=== PATIENT | male | born 1990 | race Hispanic/Latino ===

== ENCOUNTER 2021-05-14 02:02 | Emergency (ER) | payer SELFPAY ==
--- NOTE | 2021-05-14 03:19 | ER ---
Nurse's Notes [facility] Name: Zack Gomez Jr Age: 30 yrs Sex: Male : 1990 Arrival Date: 05/14/2021 Time: 02:10 Bed 15 Private MD: Diagnosis: Chest pain, unspecified-wall Presentation: 05/14 02:20 Chief complaint: Patient states: right sided rib pain that started about 30 minutes em ago, reports having 2 episodes of vomiting yesterday, denies abdominal pain or nausea or vomiting today. Coronavirus screen: Vaccine status: Patient reports being unvaccinated. Ebola Screen: Patient negative for fever greater than or equal to 101.5 degrees Fahrenheit, and additional compatible Ebola Virus Disease symptoms Patient denies exposure to infectious person. Patient denies travel to an Ebola-affected area in the 21 days before illness onset. No symptoms or risks identified at this time. Initial Sepsis Screen: Does the patient meet any 2 criteria? No. Patient's initial sepsis screen is negative. Does the patient have a suspected source of infection? No. Patient's initial sepsis screen is negative. Risk Assessment: Do you want to hurt yourself or someone else? Patient reports no desire to harm self or others. Onset of symptoms was May 14, 2021. 02:20 Method Of Arrival: Ambulatory em 02:20 Acuity: KAVITHA 3 em Historical: - Allergies: 02:19 No Known Allergies; em - PMHx: 02:19 None; em - PSHx: 02:19 None; em - Immunization history:: Client reports having NOT received the Covid vaccine. - Social history:: Smoking status: Patient reports the use of cigarette tobacco products, denies chronic smoking, but will smoke occasionally. - Family history:: not pertinent. Screenin:50 Abuse screen: Denies threats or abuse. Nutritional screening: No deficits noted. cc4 Tuberculosis screening: No symptoms or risk factors identified. Fall Risk None identified. Assessment: 02:50 General: Appears in no apparent distress. Behavior is calm, cooperative. Pain: cc4 Complains of pain in chest Pain Quality of pain is described as Reports soreness lower right lower lateral ribs x 1 hour; reports vomiting twice yesterday; reports pain level "4" only when right lateral rib area pressed with hand. Pain began 1 hour ago. Is intermittent. Vital Signs: 02:19 BP 140 / 100; Pulse 87; Resp 18; Temp 98.4; Pulse Ox 99% on R/A; Weight 81.65 kg; em Height 5 ft. 7 in. (170.18 cm); 02:50 BP 126 / 96; Pulse 73; Resp 20; Temp 97.8; Pulse Ox 99% on R/A; cc4 04:05 BP 134 / 89; Pulse 85; Resp 20; Temp 97.9; Pulse Ox 98% on R/A; cc4 02:19 Body Mass Index 28.19 (81.65 kg, 170.18 cm) em ED Course: 02:10 Patient arrived in ED. 02:19 Arm band placed on. 02:22 Triage completed. 02:35 Kory Ordoñez MD is Attending Physician. [facility] 02:50 Patient has correct armband on for positive identification. Bed in low position. Call cc4 light in reach. Side rails up X 1. 02:50 No provider procedures requiring assistance completed. cc4 02:58 Silvia Pablo, RN is Primary Nurse. cc4 03:02 Chest Pa And Lat (2 Views) XRAY Sent. cc4 03:21 Chest Pa And Lat (2 Views) XRAY In Process Unspecified. EDWI 04:05 Patient did not have IV access during this emergency room visit. cc4 Administered Medications: 02:59 Drug: Motrin (ibuprofen) 800 mg Route: PO; cc4 04:05 Follow up: Response: No adverse reaction; Pain is decreased cc4 Outcome: 03:09 Condition: stable cc4 03:19 Discharge ordered by . [facility] 04:05 Discharged to home ambulatory. cc4 04:05 Discharge instructions given to patient, Instructed on discharge instructions, follow up and referral plans. medication usage, Demonstrated understanding of instructions, follow-up care, medications, Prescriptions given X 1. 04:19 Patient left the ED. cc4 Signatures: Dispatcher [employer] EDKory Jay MD MD cha Munoz, Edgar, RN RN Zahra Thompson Silvia Pablo, FUNMI RN cc4
--- NOTE | 2021-05-14 03:19 | EDPHYS ---
Physician Documentation [facility] Name: Zack Gomez Jr Age: 30 yrs Sex: Male : 1990 Arrival Date: 05/14/2021 Time: 02:10 Bed 15 Private MD: ED Physician Kory Ordoñez HPI: 05/14 02:43 This 30 yrs old Male presents to ER via Ambulatory with complaints of RIB PAIN.[facility] 02:43 The patient or guardian reports chest pain that is located primarily in the anterior mary chest wall, right. The pain does not radiate. Associated signs and symptoms: The patient has no apparent associated signs or symptoms. The chest pain is described as sore. Duration: The patient or guardian reports multiple episodes, that wax and wane. Modifying factors: The symptoms are alleviated by remaining still, the symptoms are aggravated by movement, palpation of area. Severity of pain: At its worst the pain was mild moderate in the emergency department the pain is unchanged. The patient has not experienced similar symptoms in the past. Historical: - Allergies: 02:19 No Known Allergies; em - PMHx: 02:19 None; em - PSHx: 02:19 None; em - Immunization history:: Client reports having NOT received the Covid vaccine. - Social history:: Smoking status: Patient reports the use of cigarette tobacco products, denies chronic smoking, but will smoke occasionally. - Family history:: not pertinent. ROS: 02:43 Constitutional: Negative for fever, chills, and weight loss, Eyes: Negative for injury, mary pain, redness, and discharge, ENT: Negative for injury, pain, and discharge, Neck: Negative for injury, pain, and swelling, Cardiovascular: Negative for chest pain, palpitations, and edema, Abdomen/GI: Negative for abdominal pain, nausea, vomiting, diarrhea, and constipation, Back: Negative for injury and pain, : Negative for injury, bleeding, discharge, and swelling, MS/Extremity: Negative for injury and deformity, Skin: Negative for injury, rash, and discoloration, Neuro: Negative for headache, weakness, numbness, tingling, and seizure, Psych: Negative for depression, anxiety, suicide ideation, homicidal ideation, and hallucinations, Allergy/Immunology: Negative for hives, rash, and allergies, Endocrine: Negative for neck swelling, polydipsia, polyuria, polyphagia, and marked weight changes. 02:43 Respiratory: Positive for cough, with no reported sputum. Exam: 02:43 Constitutional: This is a well developed, well nourished patient who is awake, alert, mary and in no acute distress. Head/Face: Normocephalic, atraumatic. Eyes: Pupils equal round and reactive to light, extra-ocular motions intact. Lids and lashes normal. Conjunctiva and sclera are non-icteric and not injected. Cornea within normal limits. Periorbital areas with no swelling, redness, or edema. ENT: Nares patent. No nasal discharge, no septal abnormalities noted. Tympanic membranes are normal and external auditory canals are clear. Oropharynx with no redness, swelling, or masses, exudates, or evidence of obstruction, uvula midline. Mucous membranes moist. Neck: Trachea midline, no thyromegaly or masses palpated, and no cervical lymphadenopathy. Supple, full range of motion without nuchal rigidity, or vertebral point tenderness. No Meningismus. Chest/axilla: Normal chest wall appearance and motion. Nontender with no deformity. No lesions are appreciated. Cardiovascular: Regular rate and rhythm with a normal S1 and S2. No gallops, murmurs, or rubs. Normal PMI, no JVD. No pulse deficits. Respiratory: Lungs have equal breath sounds bilaterally, clear to auscultation and percussion. No rales, rhonchi or wheezes noted. No increased work of breathing, no retractions or nasal flaring. Abdomen/GI: Soft, non-tender, with normal bowel sounds. No distension or tympany. No guarding or rebound. No evidence of tenderness throughout. Back: No spinal tenderness. No costovertebral tenderness. Full range of motion. Male : Normal genitalia with no discharge or lesions. Skin: Warm, dry with normal turgor. Normal color with no rashes, no lesions, and no evidence of cellulitis. MS/ Extremity: Pulses equal, no cyanosis. Neurovascular intact. Full, normal range of motion. Neuro: Awake and alert, GCS 15, oriented to person, place, time, and situation. Cranial nerves II-XII grossly intact. Motor strength 5/5 in all extremities. Sensory grossly intact. Cerebellar exam normal. Normal gait. Psych: Awake, alert, with orientation to person, place and time. Behavior, mood, and affect are within normal limits. 02:43 Chest/axilla: Inspection: normal, Palpation: tenderness, that is mild, of the right lateral anterior chest and right lateral posterior chest. Vital Signs: 02:19 BP 140 / 100; Pulse 87; Resp 18; Temp 98.4; Pulse Ox 99% on R/A; Weight 81.65 kg; em Height 5 ft. 7 in. (170.18 cm); 02:50 BP 126 / 96; Pulse 73; Resp 20; Temp 97.8; Pulse Ox 99% on R/A; cc4 04:05 BP 134 / 89; Pulse 85; Resp 20; Temp 97.9; Pulse Ox 98% on R/A; cc4 02:19 Body Mass Index 28.19 (81.65 kg, 170.18 cm) em MDM: 02:35 Patient medically screened. mary 02:46 Differential diagnosis: chest wall pain, Cholelithiasis pleurisy, pneumothorax. HEART mary Score: History: Slightly Suspicious (0), Age: < or = 45 years (0), Risk Factors: No Risk Factors Known (0). The patient's deep vein thrombosis risk score was calculated as follows: Total Score: 0. This patient was found to be at low risk for a deep vein thrombosis by using the Well's assessment criteria. The patient's pulmonary embolism risk score was calculated as follows: Total Score: 0-2 points. This patient was found to be at low risk for a pulmonary embolism by using the Well's assessment criteria. SANGEETA Risk Score: TOTAL SCORE = 0. Data reviewed: vital signs, nurses notes, radiologic studies, plain films. Data interpreted: teletypesetter monitor: rate is 87 beats/min, rhythm is regular, Pulse oximetry: on room air is 99 %. Test interpretation: by ED physician or midlevel provider: plain radiologic studies. Counseling: I had a detailed discussion with the patient and/or guardian regarding: the historical points, exam findings, and any diagnostic results supporting the discharge/admit diagnosis, radiology results, the need for outpatient follow up, for definitive care, a family practitioner. 05/14 02:43 Order name: Chest Pa And Lat (2 Views) XRAY mary Administered Medications: 02:59 Drug: Motrin (ibuprofen) 800 mg Route: PO; cc4 04:05 Follow up: Response: No adverse reaction; Pain is decreased cc4 Disposition Summary: 05/14/21 03:19 Discharge Ordered Location: Home [facility] Problem: new mary Symptoms: have improved mary Condition: Stable mary Diagnosis - Chest pain, unspecified - wall mary Followup: mary - With: Private Physician - When: 2 - 3 days - Reason: Recheck today's complaints, Continuance of care, Re-evaluation by your physician Discharge Instructions: - Discharge Summary Sheet mary - Nonspecific Chest Pain, Adult mary - Chest Wall Pain, [id number] mary - Nonspecific Chest Pain, Adult, [id number] [facility] Forms: - Medication Reconciliation Form [facility] - Thank You Letter [facility] - Antibiotic Education [facility] - Prescription Opioid Use [facility] Prescriptions: - Ibuprofen 600 mg Oral Tablet - take 1 tablet by ORAL route every 6 hours As needed take with food; 30 tablet; [facility] Refills: 0, Product Selection Permitted Signatures: Dispatcher [employer] Kory Partida MD MD cha Munoz, Edgar, FUNMI RN Silvia Khanna RN RN cc4
[2021-05-14] MEDS ORDERED: IBUPROFEN 400 MG TAB ONE (03:26)
[2021-05-14 04:27] VITALS: BP 134/89; TEMP 97.9; O2SAT 98
--- NOTE | 2021-05-14 07:31 | RAD REPORT ---
EXAM DESCRIPTION: RAD - Chest Pa And Lat (2 Views) - 05/14/2021 3:21 am CLINICAL HISTORY: CHEST PAIN COMPARISON: None TECHNIQUE: Frontal and lateral views of the chest were obtained. FINDINGS: The lungs are clear. Heart size is normal and central vasculature is within normal limit s. No pleural effusion or pneumothorax seen. No acute bony finding noted. No aortic abnormality. IMPRESSION: No acute cardiopulmonary process. No acute bone finding is evident. Continued concerns for rib pathology can be addressed with dedicate d rib series.
== END 2021-05-14 04:19 | disposition home or self-care (01) ==
LOC: ER 02:02
DX: R07.9 Chest pain, unspecified (principal)
CPT/HCPCS: 71046; 99283

== ENCOUNTER 2021-07-07 17:55 | Emergency (ER) | payer SELFPAY ==
[2021-07-07 18:35] LABS: Absolute Lymphocytes (CBC) 2.5 K/uL (0.7-4.9); Basophils % 0.6 % (0-1.3); Hematocrit 47.4 % (39.6-49.0); Lymphocytes % 31.8 % (15.3-44.8); MPV 8.2 fL (7.6-11.3); RBC Red Blood Cell Count 5.62 M/uL (4.33-5.43)
--- NOTE | 2021-07-07 18:35 | RAD REPORT ---
EXAM DESCRIPTION: Caroline Single View07/07/2021 6:22 pm CLINICAL HISTORY: Chest pain COMPARISON: May 2021 FINDINGS: The lungs appear clear of acute infiltrate. The heart is normal size IMPRESSION: No acute abnormalities displayed
[2021-07-07 18:44] LABS: Protime INR 1.05
[2021-07-07 18:54] LABS: ALT/SGPT 25 U/L (12-78); AST/SGOT 20 U/L (15-37); Albumin 4.1 g/dL (3.4-5.0); Alkaline Phosphatase 92 U/L (45-117); BUN Blood Urea Nitrogen 9 mg/dL (7-18); Bicarbonate 26 mmol/L (21-32); Bilirubin Direct 0.2 mg/dL (0-0.2); Glucose Level 93 mg/dL (74-106); Magnesium 2.5 mg/dL (1.8-2.4); Potassium 4.1 mmol/L (3.5-5.1); Protein, Total 8.6 g/dL (6.4-8.2); Sodium Level 139 mmol/L (136-145); Troponin (Emerg Dept Use Only) < 0.02 ng/mL (0.0-0.045)
[2021-07-07 19:14] LABS: NT PRO-BNP < 5 pg/mL (<125)
[2021-07-07 19:28] LABS: Urine Blood Trace-lysed (Negative); Urine Glucose Negative (Negative); Urine Protein Negative (Negative)
[2021-07-07] MEDS ORDERED: NA CHLORIDE 0.9% 1,000 ML ONE (19:33)
[2021-07-07 19:54] LABS: Barbiturates NEGATIVE (NEGATIVE); Benzodiazepines NEGATIVE (NEGATIVE); Cocaine POSITIVE (NEGATIVE); METHAMPHETAM NEGATIVE (NEGATIVE); Methadone NEGATIVE (NEGATIVE); Opiates NEGATIVE (NEGATIVE); Phencyclidine NEGATIVE (NEGATIVE); THC Cannibis NEGATIVE (NEGATIVE)
[2021-07-07 20:18] LABS: SARS-COV-2 RT PCR NEGATIVE (NEGATIVE)
--- NOTE | 2021-07-07 20:20 | EDPHYS ---
Physician Documentation [facility] Name: Zack Gomez Jr Age: 30 yrs Sex: Male : 1990 Arrival Date: 07/07/2021 Time: 17:56 Bed 5 Private MD: ED Physician Monico Whyte HPI: 07/07 18:09 This 30 yrs old Male presents to ER via EMS with complaints of Chest pain. pm1 18:09 The patient or guardian reports chest pain that is located primarily in the mid-sternal pm1 area. The pain does not radiate. Associated signs and symptoms: Pertinent positives: Generalized weakness, Pertinent negatives: abdominal pain, cough, nausea, shortness of breath. The chest pain is described as Vague. Duration: The patient or guardian reports a single episode, that is still ongoing. Modifying factors: the symptoms are aggravated by Incarceration. The patient has not experienced similar symptoms in the past. The patient has not recently seen a physician. Historical: - Allergies: 18:00 No Known Allergies; jl7 - Home Meds: 18:00 None [Active]; jl7 - PMHx: 18:00 None; jl7 - PSHx: 18:00 None; jl7 - Immunization history:: Adult Immunizations unknown, Client reports having NOT received the Covid vaccine. - Social history:: Smoking status: Patient reports the use of cigarette tobacco products, denies chronic smoking, but will smoke occasionally. ROS: 18:09 Constitutional: Negative for fever, chills, and weight loss. pm1 18:09 Respiratory: Negative for shortness of breath, cough, wheezing, and pleuritic chest pain, Abdomen/GI: Negative for abdominal pain, nausea, vomiting, diarrhea, and constipation, Back: Negative for injury and pain, MS/Extremity: Negative for injury and deformity, Skin: Negative for injury, rash, and discoloration. 18:09 Cardiovascular: Positive for chest pain, Negative for palpitations. 18:09 Neuro: Positive for Generalized weakness. 18:09 All other systems are negative. pm1 Exam: 18:09 Constitutional: This is a well developed, well nourished patient who is awake, alert, pm1 and in no acute distress. Head/Face: Normocephalic, atraumatic. 18:09 Back: No spinal tenderness. No costovertebral tenderness. Full range of motion. 18:09 Skin: Warm, dry with normal turgor. Normal color with no rashes, no lesions, and no evidence of cellulitis. MS/ Extremity: Pulses equal, no cyanosis. Neurovascular intact. Full, normal range of motion. 18:09 Eyes: Exam is negative for acute changes, Extraocular movements: intact throughout, Conjunctiva: normal, no injection. 18:09 ENT: Exam is negative for acute changes, Mouth: no acute changes, Lips: normal, moist, Oral mucosa: normal, pink and intact, moist. 18:09 Cardiovascular: Exam negative for acute changes, Rate: normal, Rhythm: regular, Pulses: no pulse deficits are appreciated. 18:09 Respiratory: Exam negative for acute changes, respiratory distress, shortness of breath, Breath sounds: are clear throughout. 18:09 Abdomen/GI: Inspection: abdomen appears normal, Palpation: abdomen is soft and non-tender, in all quadrants. 18:09 Neuro: Exam negative for acute changes, Orientation: is normal, Mentation: is normal, Motor: is normal, moves all fours. Vital Signs: 17:57 BP 137 / 91; Pulse 69; Resp 17; Temp 97.8(O); Pulse Ox 100% on R/A; Weight 77.11 kg; jl7 Height 5 ft. 7 in. (170.18 cm); Pain 0/10; 19:38 BP 159 / 103; Pulse 60; Resp 17 S; Pulse Ox 98% on R/A; as6 17:57 Body Mass Index 26.63 (77.11 kg, 170.18 cm) jl7 MDM: 18:07 Patient medically screened. pm1 20:18 Data reviewed: vital signs. Data interpreted: Pulse oximetry: on room air is 98 %. pm1 Interpretation: normal. Counseling: I had a detailed discussion with the patient and/or guardian regarding: the historical points, exam findings, and any diagnostic results supporting the discharge/admit diagnosis, lab results, radiology results, the need for outpatient follow up, to return to the emergency department if symptoms worsen or persist or if there are any questions or concerns that arise at home. 07/07 18:08 Order name: Basic Metabolic Panel pm1 07/07 18:08 Order name: CBC with Diff pm1 07/07 18:08 Order name: LFT's pm1 12/04 18:08 Order name: Magnesium pm1 07/07 18:08 Order name: NT PRO-BNP; Complete Time: 19:18 pm1 07/07 18:08 Order name: PT-INR; Complete Time: 18:46 pm1 07/07 18:08 Order name: Troponin (emerg Dept Use Only); Complete Time: 19:18 pm1 07/07 18:08 Order name: UDS; Complete Time: 20:16 pm1 07/07 18:08 Order name: Flu pm1 07/07 18:08 Order name: COVID-19/FLU A+B (Document "Date of Onset" if Symptomatic); Complete Time: pm1 20:20 12 18:09 Order name: Basic Metabolic Panel; Complete Time: 19:18 EDMS 07/07 18:09 Order name: CBC with Automated Diff; Complete Time: 18:46 EDMS 07/07 18:09 Order name: Liver (Hepatic) Function; Complete Time: 19:18 EDMS 07/07 18:09 Order name: Magnesium; Complete Time: 19:18 EDMS 07/07 18:08 Order name: XRAY Chest (1 view); Complete Time: 18:46 pm1 07/07 18:08 Order name: EKG; Complete Time: 18:10 pm1 07/07 18:08 Order name: Cardiac monitoring; Complete Time: 18:30 pm1 07/07 18:08 Order name: EKG - Nurse/Tech; Complete Time: 18:31 pm1 07/07 18:08 Order name: IV Saline Lock; Complete Time: 18:30 pm1 07/07 18:08 Order name: Labs collected and sent; Complete Time: 18:30 pm1 07/07 18:08 Order name: O2 Per Protocol; Complete Time: 18:30 pm1 07/07 18:08 Order name: O2 Sat Monitoring; Complete Time: 18:30 pm1 07/07 18:08 Order name: Urine Dipstick-Ancillary (obtain specimen); Complete Time: 19:27 pm1 04 19:28 Order name: Urine Dipstick-Ancillary; Complete Time: 19:29 EDMS Administered Medications: 19:35 Drug: NS 0.9% 1000 ml Route: IV; Rate: 1000 ml; Site: right antecubital; as6 20:29 Follow up: Response: No adverse reaction; IV Status: Completed infusion; IV Intake: as6 1000ml Disposition: 07/08 08:00 Co-signature as Attending Physician, Monico Whyte MD I agree with the assessment and rn plan of care. Disposition Summary: 07/07/21 20:18 Discharge Ordered Location: Home pm1 Problem: new pm1 Symptoms: have improved pm1 Condition: Stable pm1 Diagnosis - Chest pain, unspecified pm1 - Cocaine abuse pm1 - Dehydration pm1 Followup: pm1 - With: Emergency Department - When: As needed - Reason: Worsening of condition Followup: pm1 - With: Private Physician - When: 2 - 3 days - Reason: Recheck today's complaints, Continuance of care, Re-evaluation by your physician Discharge Instructions: - Discharge Summary Sheet pm1 - Nonspecific Chest Pain, Adult pm1 - Cocaine Use Disorder pm1 - Dehydration, Adult pm1 - Rehydration, Adult pm1 Forms: - Medication Reconciliation Form pm1 - Thank You Letter pm1 - Antibiotic Education pm1 - Prescription Opioid Use pm1 Signatures: Dispatcher [employer] EDMS Monico Whyte MD MD rn Marinas, Patrick, [employer] pm1 Vikash Lopez RN RN jl7 Nikolai Morgan RN RN as6 Corrections: (The following items were deleted from the chart) 03:38 07/07 18:09 This 30 yrs old Male presents to ER via EMS with complaints of pm1 General Weakness. pm1
--- NOTE | 2021-07-07 20:20 | ER ---
Nurse's Notes [facility] Name: Zack Gomez Jr Age: 30 yrs Sex: Male : 1990 Arrival Date: 07/07/2021 Time: 17:56 Bed 5 Private MD: Diagnosis: Chest pain, unspecified;Cocaine abuse;Dehydration Presentation: 07/07 17:57 Chief complaint: EMS states: Woke up about an hour ago feeling lightheaded, pt A\T\Ox4, jl7 VSS, [employer] with pt. Coronavirus screen: At this time, the client does not indicate any symptoms associated with coronavirus-19. Ebola Screen: No symptoms or risks identified at this time. Initial Sepsis Screen: Does the patient meet any 2 criteria? No. Patient's initial sepsis screen is negative. Does the patient have a suspected source of infection? No. Patient's initial sepsis screen is negative. Risk Assessment: Do you want to hurt yourself or someone else? Patient reports no desire to harm self or others. Onset of symptoms was July 07, 2021. Care prior to arrival: None. 17:57 Method Of Arrival: EMS: [facility] jl7 17:57 Acuity: KAVITHA 3 jl7 Triage Assessment: 18:00 General: Appears in no apparent distress. uncomfortable, Behavior is calm, cooperative, jl7 appropriate for age. Pain: Denies pain. Neuro: Level of Consciousness is awake, alert, obeys commands, Oriented to person, place, time, situation. Cardiovascular: Patient's skin is warm and dry. Respiratory: Airway is patent Respiratory effort is even, unlabored, Respiratory pattern is regular, symmetrical. Derm: Skin is pink, warm \T\ dry. Historical: - Allergies: 18:00 No Known Allergies; jl7 - Home Meds: 18:00 None [Active]; jl7 - PMHx: 18:00 None; jl7 - PSHx: 18:00 None; jl7 - Immunization history:: Adult Immunizations unknown, Client reports having NOT received the Covid vaccine. - Social history:: Smoking status: Patient reports the use of cigarette tobacco products, denies chronic smoking, but will smoke occasionally. Screenin:01 Abuse screen: Denies threats or abuse. Denies injuries from another. Nutritional jl7 screening: No deficits noted. Tuberculosis screening: No symptoms or risk factors identified. 18:30 Fall Risk IV access (20 points). Total Tobias Fall Scale indicates No Risk (0-24 pts). jl7 Assessment: 18:00 General: See triage. jl7 19:30 Reassessment: Patient and/or family updated on plan of care and expected duration. Pain as6 level reassessed. Patient is alert, oriented x 3, equal unlabored respirations, skin warm/dry/pink. Vital Signs: 17:57 BP 137 / 91; Pulse 69; Resp 17; Temp 97.8(O); Pulse Ox 100% on R/A; Weight 77.11 kg; jl7 Height 5 ft. 7 in. (170.18 cm); Pain 0/10; 19:38 BP 159 / 103; Pulse 60; Resp 17 S; Pulse Ox 98% on R/A; as6 17:57 Body Mass Index 26.63 (77.11 kg, 170.18 cm) jl7 ED Course: 17:56 Patient arrived in ED. jl7 18:00 Triage completed. jl7 18:00 Meet Samaniego NP is PHCP. pm1 18:00 Monico Whyte MD is Attending Physician. pm1 18:00 Arm band placed on right wrist. jl7 18:01 Vikash Lopez, FUNMI is Primary Nurse. jl7 18:01 Patient has correct armband on for positive identification. Bed in low position. Call [facility] light in reach. Side rails up X2. ekg monitor on. Pulse ox on. NIBP on. 18:22 XRAY Chest (1 view) In Process Unspecified. EDMS 18:30 Initial lab(s) drawn, by oh, sent to lab. COVID swab sent to lab. Flu and/or RSV swab jl7 sent to lab. Inserted saline lock: 20 gauge in right antecubital area, using aseptic technique. Blood collected. 18:30 Basic Metabolic Panel Sent. jl7 18:30 CBC with Diff Sent. jl7 18:31 LFT's Sent. jl7 18:31 Magnesium Sent. jl7 20:29 No provider procedures requiring assistance completed. IV discontinued, intact, as6 bleeding controlled, No redness/swelling at site. Pressure dressing applied. Administered Medications: 19:35 Drug: NS 0.9% 1000 ml Route: IV; Rate: 1000 ml; Site: right antecubital; as6 20:29 Follow up: Response: No adverse reaction; IV Status: Completed infusion; IV Intake: as6 1000ml Intake: 20:29 IV: 1000ml; Total: 1000ml. as6 Outcome: 20:18 Discharge ordered by . pm1 20:29 Discharged to [employer] Enforcement as6 20:29 Condition: stable 20:29 Discharge instructions given to patient, Instructed on discharge instructions, follow up and referral plans. Demonstrated understanding of instructions, follow-up care. 20:30 Patient left the ED. as6 Signatures: Dispatcher [employer] EDMS Meet Samaniego NP RADIOLOGICAL EQUIPMENT SPECIALIST pm1 Vikash Lopez RN RN jl7 Nikolai Morgan RN RN as6
[2021-07-07 20:45] VITALS: TEMP 97.8
[2021-07-07 20:46] VITALS: BP 159/103; O2SAT 98
== END 2021-07-07 20:30 | disposition home or self-care (01) ==
LOC: ER 17:55
DX: F14.10 Cocaine abuse, uncomplicated (principal); E86.0 Dehydration; F17.210 Nicotine dependence, cigarettes, uncomplicated; Z20.822 Contact with and (suspected) exposure to COVID-19
CPT/HCPCS: 0240U; 36415; 71045; 80048; 80076; 80307; 81003; 83735; 83880; 84484; 85025; 85610; 93005; 96360; 99284; J7030